=== PATIENT | female | born 2000 | race Two or more races ===

== ENCOUNTER 2025-01-15 17:20 | Emergency (ER) | payer SELFPAY ==
[~2025-01-15] VITALS: Ht 165.1 cm; Wt 60.0 kg
[2025-01-15 17:31] VITALS: O2SAT 100
[2025-01-15 18:53] LABS: COLOR URINE YELLOW (YELLOW)
[2025-01-15 18:54] LABS: CLARITY URINE CLEAR (CLEAR); GLUCOSE URINE NEGATIVE (NEGATIVE); KETONES URINE NEGATIVE (NEGATIVE); LEUKOCYTE ESTERASE URINE NEGATIVE (NEGATIVE); NITRITE URINE NEGATIVE (NEGATIVE); OCCULT BLOOD URINE NEGATIVE (NEGATIVE); PH URINE 6.5 (4.5-8.0); PROTEIN URINE NEGATIVE (NEGATIVE); SPECIFIC GRAVITY URINE 1.022 (1.005-1.030); UROBILINOGEN URINE 1.0 E.U./dL (0.2-1.0)
[2025-01-15 19:59] LABS: BASOPHILS % 0.5 % (0.0-2.0); EOSINOPHILS % 1.8 % (0.0-5.0); HEMATOCRIT. 39.2 % (36.0-48.0); HEMOGLOBIN. 12.4 g/dL (12.0-16.0); LYMPHOCYTES % 30.8 % (20.0-50.0); MEAN PLATELET VOLUME 9.8 fl (7.4-10.4); MONOCYTES % 8.1 % (2.0-8.0); NEUTROPHILS % 58.8 % (40.0-76.0); PLATELET 238 x1000/uL (130-400); RED BLOOD CELL COUNT 4.49 mill/uL (4.2-5.4); RED CELL DISTRIBUTION WIDTH 14.2 % (11.6-14.6)
[2025-01-15 20:11] LABS: CREATININE 0.5 mg/dL (0.6-1.0); UREA NITROGEN BLOOD 6 mg/dL (9-23)
[2025-01-15 20:12] LABS: ASPARTATE AMINOTRANSFERASE 17 IU/L (<34)
[2025-01-15 20:13] LABS: BILIRUBIN DIRECT 0.1 mg/dL (<=3.0); BILIRUBIN TOTAL 0.4 mg/dL (0.1-1.0); HCG SCREEN NEGATIVE; PROTEIN TOTAL 7.0 g/dL (6.0-8.3)
[2025-01-15] MEDS: ONDANSETRON HCL 4MG TABLET PO ONE (21:57)
[2025-01-15] MEDS: KETOROLAC 30MG/ML VIAL IM ONE (21:57)
[2025-01-15] MEDS ORDERED: IBUP-1455 MT (22:35)
[2025-01-15 23:03] VITALS: BP 113/65; PULSE 69; RESP 15; TEMP 37; O2SAT 100
== END 2025-01-15 23:05 | disposition home or self-care (01) ==
LOC: ER 17:42
DX: R51.9 Headache, unspecified (principal); R11.0 Nausea; R53.83 Other fatigue; R42 Dizziness and giddiness; E78.00 Pure hypercholesterolemia, unspecified
CPT/HCPCS: 99283; 80076; 80048; 81003; 81025; 84703; 85025; 36415; 96372; J1885; Q0162